=== PATIENT | female | born 1970 | race Caucasian/White ===

== ENCOUNTER 2018-01-17 00:57 | Emergency (ER) | payer SELFPAY ==
[2018-01-17 00:58] VITALS: BP 140/82; PULSE 95; RESP 14; TEMP 37.1; O2SAT 98; BMI 43.6
--- NOTE | 2018-01-17 02:10 | RAD_ITS ---
STUDY: X-RAY - LEFT ANKLE REASON FOR EXAM: Female, 47 years old. WITH LEFT LOWER ANKLE PAIN X 1 MONTH. REPORTS INCREASED EDEMA. ETOH TECHNIQUE: view(s) of the ankle. COMPARISON: None. FINDINGS: Normal visualized distal tibia and fibula. Normal medial and lateral malleoli. Advanced degenerative changes in the tibiotalar articulation and ankle mortise. There is subchondral lucent lesion at the plantar aspect of the talar dome may represent a subchondral cyst or osteochondral lesion. Plantar calcaneal spur and enthesophyte at the insertion of the Achilles tendon are noted. Degenerative changes of the subtalar articulation. Normal talonavicular, calcaneocuboid and tarsal articulations are normal. Marked soft tissue swelling is seen at the medial and lateral aspect of the ankle. RAD/Ankle min 3 Views IMPRESSION: Degenerative arthrosis. There is no evidence of fracture. Electronically Signed: Nadege Majano MD at 3:13 EDT Tel , Service support ,
--- NOTE | 2018-01-17 02:55 | ED.DEP ---
ED Disposition - Plan for ED Patient: Chief Complaint: Lower Extremity Injury Instructions: What Is Arthritis in the Foot? Referrals: Calvin Caban MD [STAFF PHYSICIAN] - 1-2 Weeks
--- NOTE | 2018-01-17 03:05 | ED.DCSUM_ITS ---
- ER Visit Summary Date of Service: 01/17/18 Chief Complaint: [Left foot pain and swelling] History of Present Illness: The patient is a 47 F [who presents the emergency department with left foot splint pain and swelling. It has been going on for the last several months however it was more swollen tonight. She does work doing housekeeping and it hurts worse when she dorsiflexes her foot right at the ankle it feels like someone's sending a knife through it. She states her whole leg seems to be more swollen. She does have varicose veins. Sometimes her toes turn red. Sometimes she has a varicose vein on her foot that burst and is painful and then comes back. 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 She had no fevers or chills. No direct injury. She does drink alcohol. He denies any shortness of breath. Physical Examination: [] She has varicosities in the bilateral lower extremities left greater than right. There are no palpable cords. She has 2+ strong DP pulses. She has no pain with range of motion. She has nonpitting edema about the left ankle diffusely. There is no discoloration of the pin of the foot or ankle. Test Results: [] Emergency Department Course and Treatment: [I do think she requires ultrasound which is not available at this time. This is been going on for several months. History is most consistent with a tendinitis versus arthritic flare. I do not think prophylactic Lovenox is indicated. She was written a prescription for ultrasound in the morning. She understands the importance of maintaining this. X-rays do show arthritic changes about the ankle joint. She was given an Klever wrap and Aircast she will ice and elevate and rest as able.] Treatment Plan: [] Disposition: [Discharge] Impression: [1. Left ankle pain and swelling] This note was generated with [employer] dictation software. It may contain incorrect words, spelling, and punctuation that were not noted in review of the chart prior to signing ED Disposition - Plan for ED Patient: Chief Complaint: Lower Extremity Injury Instructions: What Is Arthritis in the Foot? Referrals: Calvin Caban MD [STAFF PHYSICIAN] - 1-2 Weeks
[2018-01-17 03:09] VITALS: RESP 16
== END 2018-01-17 03:10 | disposition home or self-care (01) ==
PROVIDERS: Emergency Provider Emergency Medicine
DX: M25.572 Pain in left ankle and joints of left foot (principal); M25.472 Effusion, left ankle
CPT/HCPCS: 73610; 99283

== ENCOUNTER → 2018-01-19 15:23 | Outpatient (CLI) | payer SELFPAY ==
--- NOTE | 2018-01-19 15:27 | VDLE_ITS ---
Reason For Study: LEG PAIN AND SWELLING RIGHT LEFT CFV is compressible, spontaneous, phasic, GSV is normal. competent and demonstrates normal CFV is compressible, spontaneous, phasic, augmentation. competent, and demonstrates normal Procedure augmentation. Exam performed in department. FV is compressible, spontaneous, phasic, competent and demonstrates normal augmentation. POP V is compressible, spontaneous, phasic, competent and demonstrates normal augmentation. T/P Trunk is compressible. PTV is compressible. LT PerV is compressible. Interpretation Summary Deep veins of the left lower extremity are patent and compressible segmentally. There is no evidence of left lower extremity deep vein thrombosis. Valvular competence appears intact within the proximal deep venous system on the left . The left greater saphenous vein appears patent and compressible segmentally. Ordering Physician: Ely Noel Referring Physician: Ely Noel Performed By: Deepali Jaeger RVT
== END ==
PROVIDERS: Visit Provider Emergency Medicine
DX: R60.0 Localized edema (principal)
CPT/HCPCS: 93971

== ENCOUNTER 2018-10-15 18:14 | Emergency (ER) | payer SELFPAY ==
[2018-10-15] VITALS (7 sets, daily range): BP systolic 136–167; BP diastolic 85–111; PULSE 70–94; RESP 15–21; TEMP 36.7; O2SAT 96–98; BMI 43.2
--- NOTE | 2018-10-15 18:25 | EKG12_ITS ---
Test Reason : CP Blood Pressure : / mmHG Vent. Rate : 097 BPM Atrial Rate : 087 BPM P-R Int : 110 ms QRS Dur : 086 ms QT Int : 364 ms P-R-T Axes : 043 031 060 degrees QTc Int : 462 ms Sinus rhythm with short ND with frequent Premature ventricular complexes and Fusion complexes Nonspecific ST and T wave abnormality Abnormal ECG Confirmed by GREGORY HEAD, NILO ([id number]), acquisitions editor MIKI GONZAELS ([id number]) on 10/20/2018 3:03:11 PM Referred By: Confirmed By:NILO JENKINS MD
--- NOTE | 2018-10-15 18:26 | ED.VISSUMM ---
- ER Visit Summary Date of Service: 10/15/18 Chief Complaint: chest pain History of Present Illness: The patient is a 47 F who presents for chest pain today, with fluttering in her chest for one week. Patient has had 1 week of intermittent sensation of her chest fluttering. It improves with rest. Today she had a brief 2-second episode of a electric sharp shooting pain in her left chest. She currently is complaining of substernal tightness and fluttering. She has associated shortness of breath and vomited prior to coming into the emergency department. She denies fever, abdominal pain, back pain, urinary symptoms, denies . Patient denies any medical problems. She is a smoker. She has a history of tubal ligation. Physical Examination: Vital signs: afebrile, hemodynamically stable, no hypoxia on room air General: well nourished, well developed, in no distress Skin: warm, dry, no rash, no pallor HEENT: normocephalic and atraumatic; PERRL, EOMI, moist mucous membranes Cardiovascular: regular rate and irregular rhythm without murmurs, no peripheral edema, 2+ pulses all distal extremities Respiratory: No increased work of breathing, lungs are clear to auscultation bilaterally, no rales, rhonchi or wheezing Abdominal: Abdomen is soft, nontender with normoactive bowel sounds, no guarding or rebound, no masses MSK: Moves all extremities, no deformities, normal strength Neuro: Awake and alert, oriented ?4. No facial droop, sensation and motor function intact and symmetric Test Results: Abnormal Lab Results 10/15/18 10/15/18 18:30 18:30 WBC 10.5 RBC 4.61 Hgb 13.0 Hct 39.7 MCV 86.1 MCH 28.2 MCHC 32.7 RDW 13.6 RDW Differential 42.2 Plt Count 328 MPV 9.7 Immature Gran % (Auto) 0.400 Neut % (Auto) 57.9 Lymph % (Auto) 32.1 [place] % (Auto) 6.0 Eos % (Auto) 3.2 Baso % (Auto) 0.4 Absolute Neuts (auto) 6.1 Absolute Lymphs (auto) 3.38 Total Counted Not Reportable Sodium 140 Potassium 3.6 Chloride 107 Carbon Dioxide 25.0 Anion Gap 8 BUN 14 Creatinine 0.63 Estim Creat Clear Calc 104.45 Est GFR (MDRD) Af Amer 130 Est GFR (MDRD) Non-Af 108 BUN/Creatinine Ratio 22.2 H Glucose 109 H Calcium 8.9 Magnesium 1.7 Total Bilirubin 0.30 AST 21 ALT 28 Alkaline Phosphatase 84 Troponin I < 0.015 Total Protein 7.7 Albumin 3.7 Globulin 4.0 Albumin/Globulin Ratio 0.9 TSH 1.74 Clinical Impression(s) from Imaging Studies Chest X-Ray 10/15/18 19:04 IMPRESSION: Normal x-ray examination of the chest. Electronically Signed: Sylvester Arias MD at 20:17 EST , Service support , Medications Given Discontinued Medications Aspirin (Aspirin, Baby) 324 mg PO X1 STA Stop: 10/15/18 18:26 Last Admin: 10/15/18 18:56 Dose: 324 mg Sodium Chloride () 1,000 mls @ 1,000 mls/hr IV .Q1H ONE Stop: 10/15/18 19:24 Last Admin: 10/15/18 18:56 Dose: 1,000 mls/hr Nitroglycerin (Nitrostat) 0.4 mg SUBLINGUAL Q5M DARREN Stop: 10/15/18 18:41 Last Admin: 10/15/18 19:01 Dose: Not Given Admin: 10/15/18 19:01 Dose: Not Given Admin: 10/15/18 18:58 Dose: 0.4 mg Emergency Department Course and Treatment: Patient was placed on the phototypesetting equipment monitor and has frequent unifocal PVCs that correspond to the fluttering feeling. Patient however is complaining of chest tightness as well, which she does not clearly relate solely to the fluttering sensation. She has CAD risk factors of tobacco use and obesity. Chest pain workup was performed. EKG showed a sinus rhythm with no ischemic changes, positive for unifocal PVCs. Troponin negative. Patient's thyroid function was within normal limits. No significant electrolyte derangements. Chest x-ray showed no acute process. Patient did receive aspirin and 1 nitroglycerin when she first presented. Patient on reevaluation stated that she was feeling much better and had a long period where she did not feel any of the fluttering sensations. She is now having a few flutterings, and it is noted that she is not having as frequent PVCs but still has occasional ones noted. The number of PVCs does seem to correlate with patient's chest discomfort. Patient has a HEART score of 3, puts her at low risk of 30-day MACE. Discussed a 3-hour repeat troponin and EKG with the patient, and she stated she did not want to stay. She feels comfortable with the workup that has been done. Patient was given return precautions. Patient discharged home in improved condition. Treatment Plan: [] Disposition: [] Impression: Frequent PVCs This note was generated with [employer] dictation software. It may contain incorrect words, spelling, and punctuation that were not noted in review of the chart prior to signing ED Disposition - Plan for ED Patient: Chief Complaint: Chest Pain Referrals: Care Physician,No Primary [Primary Care Provider] -
[2018-10-15 18:44] LABS: Absolute Lymphocyte Count 3.38 X10^3/ul (0.83-4.51); Absolute Neutrophil Count 6.1 X10^3/uL (2.0-7.7); Basophil# 0.04 X10^3/uL; Basophil% 0.4 % (0-1); Eosinophil# 0.34 X10^3/uL; Eosinophils% 3.2 % (0-5); Hematocrit 39.7 % (37-47); Lymphocyte # 3.38 X10^3/ul (4.0); Lymphocyte % 32.1 % (19-41); Mean Corp Hgb Conc 32.7 g/gl (32-36); Mean Corpuscular Hgb 28.2 pg (27.0-32.0); Mean Corpuscular Volume 86.1 fL (81-99); Mean Platelet Vol. 9.7 fl (6.2-12.0); Monocyte# 0.63 X10^3/uL; Neutrophil # 6.09 X10^3/uL (2.7-7.7); Neutrophil % 57.9 % (47-70); POSITIVE COUNT NO; POSITIVE DIFFERENTIAL NO; POSITIVE MORPHOLOGY NO; Platelet Count 328 K/mm3 (150-450); RBC Distribution Width CV 13.6 % (11.6-14.6); RBC Distribution Width SD 42.2 fl (35.1-43.9); Red Blood Count 4.61 M/mm3 (4.2-5.4); White Blood Count 10.5 K/mm3 (4.4-11.0)
[2018-10-15] MEDS: 0.9% Normal Saline 1,000 ML 1000 ML IV (18:56)
[2018-10-15] MEDS: Aspirin 81 MG TAB.CHEW 324 MG PO (18:56)
[2018-10-15 19:03] LABS: ALB/GLOB Ratio 0.9 RATIO (0.9-2.4); AST(SGOT) 21 U/L (15-37); Alanine Aminotransfer ALT/SGPT 28 U/L (13-56); Albumin, Serum 3.7 g/dL (3.2-5.0); Alkaline Phosphatase 84 U/L (45-117); Anion Gap 8 (5-15); BUN 14 mg/dL (7-18); BUN/Creat Ratio 22.2 RATIO (10-20); Calcium,Total 8.9 mg/dL (8.5-10.1); Chloride 107 mmol/L (98-107); Creatinine, Serum 0.63 mg/dL (0.55-1.02); EST Glomerular Filtration Rate 108 mL/min (>60); Est Glom Filt Rate - Afr Amer 130 mL/min (>60); Estimated Creatinine Clearance 104.45 ml/min; Glucose 109 mg/dL (74-106); Magnesium 1.7 mg/dL (1.6-2.6); Potassium 3.6 mmol/L (3.5-5.1); Protein, Total 7.7 g/dL (6.4-8.2); Sodium Level 140 mmol/L (136-145); Thyroid Stim Hormone (TSH) 1.74 uIU/mL (0.358-3.74)
--- NOTE | 2018-10-15 19:04 | RAD_ITS ---
STUDY: X-RAY CHEST REASON FOR EXAM: Female, 47 years old. Chest pain. Recent upper respiratory infection. TECHNIQUE: PA and lateral views of the chest. COMPARISON: July 29, 2017 FINDINGS: There are monitoring devices. The lungs are clear and expanded. There is no demonstrated pleural abnormality. Normal size heart. Normal mediastinum and karla. Normal visualized pulmonary arteries. Normal visualized aortic arch and descending thoracic aorta. Normal visualized thoracic spine. Normal visualized ribs, clavicles, and shoulders. There is no demonstrated abnormality of the visualized soft tissue structures of the upper abdomen. RAD/Chest PA and Lateral IMPRESSION: Normal x-ray examination of the chest. Electronically Signed: Sylvester Arias MD at 20:17 EST , Service support ,
--- NOTE | 2018-10-15 20:33 | ED.DEP ---
ED Disposition - Plan for ED Patient: Disposition: Home or Assisted Living Chief Complaint: Chest Pain Instructions: Premature Ventricular Contractions, ED Chest Pain Atypical Unkn Cause Referrals: Care Physician,No Primary [Primary Care Provider] - Lisseth Pink DO [STAFF PHYSICIAN] - 1-2 Days if not improving Additional Instructions: You are having occasional funny heart beats, which are most likely harmless. They can be caused by stress, fatigue, stimulant use such as tobacco, caffeine or energy drinks, or sometimes it is unknown what is causing them. If you develop significant chest discomfort again, please return emergency department for another evaluation. If you have any worsening of your condition or any new concerning symptoms, please return immediately to the emergency department for another evaluation.
== END 2018-10-15 20:41 | disposition home or self-care (01) ==
PROVIDERS: Emergency Provider Emergency Medicine
DX: I49.3 Ventricular premature depolarization (principal); E66.9 Obesity, unspecified; F17.200 Nicotine dependence, unspecified, uncomplicated
CPT/HCPCS: 71046; 80053; 83735; 84443; 84484; 85025; 93005; 96360; 99285; J7030; A4216

== ENCOUNTER 2019-08-28 17:24 | Emergency (ER) | payer SELFPAY ==
[2018-10-15 18:15] VITALS: BMI 43.2
[2019-08-28 17:26] VITALS: BP 170/97; PULSE 92; RESP 20; TEMP 36.6; O2SAT 100; BMI 44.2
--- NOTE | 2019-08-28 17:33 | EKG12_ITS ---
Test Reason : PALPS Blood Pressure : / mmHG Vent. Rate : 085 BPM Atrial Rate : 085 BPM P-R Int : 142 ms QRS Dur : 082 ms QT Int : 366 ms P-R-T Axes : 054 045 068 degrees QTc Int : 435 ms Poor data quality, interpretation may be adversely affected Normal sinus rhythm Nonspecific ST abnormality Abnormal ECG Confirmed by OSEAS HEAD, ESSIE ([id number]), department editor MIKI GONZALES ([id number]) on 08/29/2019 12:06:34 PM Referred By: ANTONINA Confirmed By:DEVYN FAROOQ MD
[2019-08-28 17:39] VITALS: BP 170/95; PULSE 74; RESP 25; O2SAT 100
[2019-08-28 17:40] VITALS: O2SAT 100
--- NOTE | 2019-08-28 17:42 | RAD_ITS ---
STUDY: X-RAY CHEST REASON FOR EXAM: Female, 48 years old. Palpitations. TECHNIQUE: Single AP portable view of the chest. COMPARISON: October 15, 2018. FINDINGS: Telemetry wires overlie the chest. The lungs are clear and expanded. There is no demonstrated pleural abnormality. Normal size heart. Normal mediastinum and karla. Normal visualized pulmonary arteries. Normal visualized aortic arch and descending thoracic aorta. Normal visualized thoracic spine. Normal visualized ribs, clavicles, and shoulders. There is no demonstrated abnormality of the visualized soft tissue structures of the upper abdomen. RAD/Chest 1 View (Portable) IMPRESSION: No acute cardiopulmonary disease or interval change. Electronically Signed: Vega Fair DO at 20:32 EST Tel [phone], Service support ,
--- NOTE | 2019-08-28 17:46 | ED.VISSUMM ---
- ER Visit Summary Date of Service: 08/28/19 Chief Complaint: Chest pain and PVC's History of Present Illness: The patient is a 48 F history of PVCs and irritable bowel. Patient states she has had intermittent chest pain for last 2 days. Prior sternal area. She denies shortness of breath. No history of DVT or PE. No recent travel or surgery no mobilization. States the pain is sharp and intermittent. She recent was treated by an urgent care for bronchitis and was placed on Augmentin, prednisone and Tessalon Perles. She denies any calf pain or new swelling. Physical Examination: Middle-aged female no acute distress vital signs stable afebrile. Pulse ox on percent room air no signs hypoxia. HEENT exam unremarkable. Neck nontender no lymphadenopathy. Lungs clear to auscultation bilaterally. Heart regular rhythm no murmur. Abdomen soft nontender normal bowel sounds no peritoneal signs. Chest were nontender. Patient moving all 4 extremities. Calves are nontender without cords. She has trace edema bilaterally which is chronic. Neurologically she is awake and alert with no focal motor deficits. Test Results: EKG shows sinus rhythm rate of 85 with no acute signs of KS or ischemia. There is areas of artifact. Chest x-ray one view shows no acute abnormality. Normal cardiac silhouette mediastinum. Read by myself. Awaiting radiology interpretation. CBC shows white count of 14. Hemoglobin 13. Hematocrit 42. Chemistries normal. Normal creatinine gap. Troponin normal. Emergency Department Course and Treatment: Patient undergo cardiac work-up. Treatment Plan: Repeat exam at 2005 p.m. patient is doing well. She feels comfortable being discharged home. We went over all of her test results. She will follow-up with her primary care physician. Disposition: Discharge Impression: Atypical nonexertional chest pain of uncertain etiology Palpitations This note was generated with [employer] dictation software. It may contain incorrect words, spelling, and punctuation that were not noted in review of the chart prior to signing ED Disposition - Plan for ED Patient: Referrals: Ede King DO [Primary Care Provider] -
[2019-08-28 18:13] LABS: BUN 11 mg/dL (7-18); Creatinine, Serum 0.85 mg/dL (0.55-1.02); Glucose 90 mg/dL (74-106)
[2019-08-28 18:14] LABS: Anion Gap 5 (5-15); BUN/Creat Ratio 12.9 RATIO (10-20); Calcium,Total 9.4 mg/dL (8.5-10.1); Chloride 105 mmol/L (98-107); EST Glomerular Filtration Rate 76 mL/min (>60); Est Glom Filt Rate - Afr Amer 92 mL/min (>60); Estimated Creatinine Clearance 73.62 ml/min; Potassium 4.4 mmol/L (3.5-5.1); Sodium Level 138 mmol/L (136-145)
[2019-08-28 18:21] LABS: Absolute Lymphocyte Count 3.74 X10^3/uL (0.83-4.51); Absolute Neutrophil Count 9.2 X10^3/uL (2.0-7.7); Basophil# 0.06 X10^3/uL; Basophil% 0.4 % (0-1); Eosinophil# 0.34 X10^3/uL; Eosinophils% 2.4 % (0-5); Hemoglobin 13.7 g/dL (12.0-15.0); Lymphocyte # 3.74 X10^3/ul (4.0); Lymphocyte % 26.7 % (19-41); Mean Corp Hgb Conc 32.6 g/dL (32-36); Mean Corpuscular Hgb 28.5 pg (27.0-32.0); Mean Corpuscular Volume 87.3 fL (81-99); Mean Platelet Vol. 10.3 fl (6.2-12.0); Monocyte# 0.61 X10^3/uL; Monocyte% 4.4 % (0-10); NRBC Flagged by Analyzer 0 % (0-5); Neutrophil # 9.19 X10^3/uL (2.7-7.7); Neutrophil % 65.7 % (47-70); Platelet Count 360 K/mm3 (150-450); RBC Distribution Width CV 13.6 % (11.6-14.6); RBC Distribution Width SD 42.7 fl (35.1-43.9); Red Blood Count 4.81 M/mm3 (4.2-5.4)
[2019-08-28 18:27] VITALS: BP 135/81; PULSE 77; RESP 19; O2SAT 98
--- NOTE | 2019-08-28 20:10 | ED.DEP ---
ED Disposition - Plan for ED Patient: Disposition: Home or Assisted Living Instructions: Palpitations Referrals: Ede King DO [Primary Care Provider] - 3-5 Days Additional Instructions: Return if feeling worse. Otherwise follow-up with your primary care physician.
[2019-08-28 20:12] VITALS: BP 146/78; PULSE 81; RESP 18; O2SAT 99
--- NOTE | 2019-08-28 20:17 | ED.RN ---
THIS NURSE REVIEWED D/C INSTRUCTIONS WITH PT. PT VERBALIZED UNDERSTANDING OF INSTRUCTIONS. IV D/C. IV CATHETER INTACT. PT TOLERATED WELL. PT DENIES FURTHER NEEDS OR QUESTIONS AT THIS TIME. PT AMBULATES FROM ROOM ON OWN WITHOUT ASSISTANCE FROM STAFF
== END 2019-08-28 20:18 | disposition home or self-care (01) ==
PROVIDERS: Emergency Provider Emergency Medicine; Family Provider Family Medicine; PCP Family Medicine
DX: R07.89 Other chest pain (principal); R00.2 Palpitations; F17.200 Nicotine dependence, unspecified, uncomplicated
CPT/HCPCS: 71045; 80048; 84484; 85025; 93005; 99284; A4216

== ENCOUNTER 2020-01-26 13:59 | Emergency (ER) | payer MEDICAID, SELFPAY ==
[2020-01-26 14:00] VITALS: BP 189/107; PULSE 87; RESP 16; TEMP 36.6; O2SAT 99; BMI 46.7
--- NOTE | 2020-01-26 14:13 | ED.VIS.GEN ---
History of Present Illness Chief Complaint: Hypertension Informant: Patient Narrative: Patient presents the emergency department for the evaluation of hypertension. Patient states she was at her bariatric surgeon's office today and they noted significantly elevated blood pressures upwards of 190/100. The patient states that on various emergency department visits she has had is been noted that her blood pressure has been significantly elevated like that. She has been unable to establish a new PCP because of the current pandemic restrictions. She states that she did call her new PCPs office and they recommended her come to the emergency room. She has had a headache for the past 3 days but denies any neurologic symptoms. She states that earlier today she felt some tinnitus. She denies any chest pain shortness of breath. She reports having had normal renal function test in the past I did confirm this her last creatinine was in August and normal. She has never been treated for hypertension. Past Medical History - Allergies and Home Meds Allergies/Adverse Reactions: Allergies latex Allergy (Verified 01/26/20 13:59) Rash Primary Care Physician: Ricardo Boob MD [Primary Care Provider] - Smoking Status: Current every day smoker Review of Systems General: Denies: Chills, Fever, Sweats Eyes: Denies: Visual changes - bilaterally, Diplopia ENT: Reports: - - Tinnitus. Denies: Rhinorrhea, Sore throat Cardiovascular: Denies: Chest pain, Palpitations Respiratory: Denies: Dyspnea, Cough, Dyspnea on exertion Gastrointestinal: Denies: Abdominal pain, Nausea, Vomiting, Diarrhea, Melena, Hematochezia Genitourinary: Denies: Dysuria, Hematuria, Frequency Musculoskeletal: Denies: Back pain, Extremity Pain Skin: Denies: Rash, Wounds Neurological: Reports: Headache. Denies: Weakness, Numbness Physical Exam Vital Signs/Narrative: Vital Signs Temp Pulse Resp BP Pulse Ox 01/26/20 14:00 97.9 F 87 16 189/107 H 99 Inital Vital Signs reviewed: Yes General: Well nourished, Well developed, Obese, No Acute Distress Head: Normocephalic, Atraumatic Eyes: Perrl, EOMI ENT: Moist mucous membranes, No rhinorrhea Neck: Supple, Nontender Cardiovascular: Regular rate, Regular rhythm, No murmurs Respiratory: No distress, CTA bilaterally, Chest nontender Abdomen: Soft, Nontender, Nondistended, Normal bowel sounds Back: Nontender, Normal Inspection Extremities: Nontender, No edema Skin: Normal color, No rash Neurological: Alert, Oriented x3, Cranial nerves II-XII grossly intact, Normal Strength, Normal Sensation Psychological: Normal affect, Normal Mood Diagnostic/Tx/Re-eval - Medical Decision Making I will start the patient on amlodipine 5 mg. We talked about her getting a blood pressure cuff and recording numerous data points to review with her doctor. This could potentially be reviewed during a telemedicine conference. Patient understands that the treatment of blood pressure is unique to each individual and will require adjustments over time. ED Disposition - Plan for ED Patient: Disposition: Home or Assisted Living Instructions: ED Hypertension New Begin Treatment Prescriptions: Amlodipine Besylate [Norvasc] 5 mg PO DAILY #30 tab Transmission Status: Pending to [email or web address] #30 Referrals: Ricardo Bobo MD [Primary Care Provider] - (with in 2 weeks to discuss your blood pressure readings.) Additional Instructions: I strongly recommend obtaining a blood pressure cuff and recording your blood pressure daily using the same arm and in a normal seated position.
[2020-01-26 14:36] VITALS: BP 189/107
== END 2020-01-26 14:43 | disposition home or self-care (01) ==
LOC: ED 14:37
PROVIDERS: Emergency Provider Emergency Medicine; PCP Family Medicine
DX: I10 Essential (primary) hypertension (principal); E66.9 Obesity, unspecified; Z68.42 Body mass index [BMI] 45.0-49.9, adult; F17.200 Nicotine dependence, unspecified, uncomplicated
CPT/HCPCS: 99282

== ENCOUNTER 2020-03-24 05:15 | Emergency (ER) | payer MEDICAID, SELFPAY ==
[2020-03-24 05:16] VITALS: BP 158/90; PULSE 107; RESP 18; TEMP 36.7; O2SAT 97; BMI 44.1
--- NOTE | 2020-03-24 05:26 | ED.VIS.GEN ---
History of Present Illness Chief Complaint: Suicidal Informant: Patient Narrative: Patient brought in by police at the request of crisis. She spoke with crisis tonight. She was in the bathtub and wanted to cut her wrist to kill herself. She was upset and drank alcohol this evening. She had a friend who committed suicide and she is deeply saddened by this. Current severity is severe. Denies illegal drug use Past Medical History - Allergies and Home Meds Allergies/Adverse Reactions: Allergies latex Allergy (Verified 03/24/20 05:19) Rash Prior records reviewed: Yes Past Medical History: - - Reviewed Surgical History: - - Reviewed Smoking Status: Light Smoker (<10/day) Alcohol: Occasional Drugs: None Review of Systems General: Denies: Chills, Fever, Sweats Eyes: Denies: Visual changes - bilaterally, Diplopia ENT: Denies: Rhinorrhea, Sore throat Cardiovascular: Denies: Chest pain, Palpitations Respiratory: Denies: Dyspnea, Cough, Dyspnea on exertion Gastrointestinal: Denies: Abdominal pain, Nausea, Vomiting, Diarrhea, Melena, Hematochezia Genitourinary: Denies: Dysuria, Hematuria, Frequency Musculoskeletal: Denies: Back pain, Extremity Pain Skin: Denies: Rash, Wounds Neurological: Denies: Headache, Weakness, Numbness Psych: Reports: Depression, Suicidal ideations Physical Exam Vital Signs/Narrative: Vital Signs Temp Pulse Resp BP Pulse Ox 03/24/20 05:16 98.0 F 107 H 18 158/90 H 97 General: Well nourished, Well developed, No Acute Distress Head: Normocephalic, Atraumatic Eyes: Perrl, EOMI ENT: Moist mucous membranes, No rhinorrhea Neck: Supple, Nontender Cardiovascular: Regular rate, Regular rhythm, No murmurs Respiratory: No distress, CTA bilaterally, Chest nontender Abdomen: Soft, Nontender, Nondistended, Normal bowel sounds Back: Nontender, Normal Inspection Extremities: Nontender, No edema Skin: Normal color, No rash Neurological: Alert, Oriented x3, Cranial nerves II-XII grossly intact, Normal Strength, Normal Sensation Psychological: Tearful Diagnostic/Tx/Re-eval - Medical Decision Making Patient will undergo medical screening labs and clearance. Will be seen by crisis for suicidal ideation with plan to hurt self. Alcohol is 260. Potassium is 3.2. Potassium was replaced orally. Will discuss the case with crisis and they will see her upon sobriety for disposition ED Disposition - Plan for ED Patient: Disposition: Home or Assisted Living Diagnosis: Suicidal ideation, Alcohol intoxication
[2020-03-24 05:40] LABS: Absolute Lymphocyte Count 5.31 X10^3/uL (0.83-4.51); Absolute Neutrophil Count 4.2 X10^3/uL (2.0-7.7); Basophil# 0.06 X10^3/uL; Basophil% 0.6 % (0-1); Eosinophil# 0.33 X10^3/uL; Eosinophils% 3.1 % (0-5); Hematocrit 38.6 % (37-47); Hemoglobin 12.7 g/dL (12.0-15.0); Lymphocyte # 5.31 X10^3/ul (4.0); Lymphocyte % 50.7 % (19-41); Mean Corp Hgb Conc 32.9 g/dL (32-36); Mean Corpuscular Hgb 28.5 pg (27.0-32.0); Mean Corpuscular Volume 86.5 fL (81-99); Mean Platelet Vol. 9.5 fl (6.2-12.0); Monocyte# 0.56 X10^3/uL; Monocyte% 5.3 % (0-10); NRBC Flagged by Analyzer 0 % (0-5); Neutrophil # 4.17 X10^3/uL (2.7-7.7); Neutrophil % 39.8 % (47-70); POSITIVE DIFFERENTIAL YES; Platelet Count 377 K/mm3 (150-450); RBC Distribution Width SD 40.5 fl (35.1-43.9); Red Blood Count 4.46 M/mm3 (4.2-5.4); White Blood Count 10.5 K/mm3 (4.4-11.0)
[2020-03-24 05:40] LABS: Vista UDS pH Range 6
[2020-03-24 05:41] LABS: Differential Indicated SCAN CRITERIA MET
[2020-03-24 05:51] LABS: Internal QC Validated? YES +Cl - CLEAR BKGD
[2020-03-24 05:52] LABS: Pregnancy, Serum, hCG Quali. NEGATIVE Negative
[2020-03-24 05:52] LABS: Amphetamine Urine VISTA NEGATIVE (<1000 ng/mL); Barbiturate Urine VISTA NEGATIVE (< 200 ng/mL); Benzodiazepine Urine VISTA NEGATIVE (< 200 ng/mL); Cocaine Urine VISTA NEGATIVE (< 300 ng/mL); Ecstacy Urine VISTA NEGATIVE (< 500 ng/mL); Methadone Urine VISTA NEGATIVE (< 300 ng/mL); PCP Urine VISTA NEGATIVE (< 25 ng/mL); THC Urine VISTA NEGATIVE (< 50 ng/mL)
[2020-03-24 05:56] LABS: Anion Gap 9 (5-15); BUN 11 mg/dL (7-18); Calcium,Total 8.6 mg/dL (8.5-10.1); Chloride 102 mmol/L (98-107); EST Glomerular Filtration Rate 139 mL/min (>60); Est Glom Filt Rate - Afr Amer 169 mL/min (>60); Estimated Creatinine Clearance 118.82 ml/min; Glucose 104 mg/dL (74-106); Potassium 3.2 mmol/L (3.5-5.1); Sodium Level 135 mmol/L (136-145)
[2020-03-24 06:06] LABS: Atypical Lymphocyte RARE %; Differential Comment SCANNED
[2020-03-24 06:15] VITALS: RESP 15
[2020-03-24 11:54] VITALS: BP 134/82; PULSE 69; RESP 15; TEMP 36.7; O2SAT 98
--- NOTE | 2020-03-24 13:12 | CM.ED ---
SOCIAL WORK Received call from Soumya with Crisis. Updated on patient's alcohol level. Per Soumya, has other patient's ahead of patient. Will call back in to complete assessment.
--- NOTE | 2020-03-24 13:54 | NURSING ---
CALLED CRISIS TO TALK TO PATIENT AND DO AN ASSESSEMENT
[2020-03-24 13:59] VITALS: RESP 17
--- NOTE | 2020-03-24 15:17 | ED.DCSUM_ITS ---
- ER Visit Summary Date of Service: 03/24/20 Signed out to me by Dr. Michael Hernandez read pending lesion by crisis. Patient was intoxicated upon arrival and stating that she wanted to hurt herself. On repeat her alcohol has come back negative. Patient is no longer expressing ideas of suicidal ideation. Crisis contacted me and they will make a safety plan for her. She will follow-up with crisis. Patient also expresses no suicidal ideation to me at this time will be discharged home in stable condition. This note was generated with [employer] dictation software. It may contain incorrect words, spelling, and punctuation that were not noted in review of the chart prior to signing ED Disposition - Plan for ED Patient: Disposition: Home or Assisted Living Diagnosis: Suicidal ideation, Alcohol intoxication Referrals: Ricardo Bobo MD [Primary Care Provider] -
[2020-03-24 15:28] VITALS: PULSE 72; RESP 17; O2SAT 98
== END 2020-03-24 15:30 | disposition home or self-care (01) ==
PROVIDERS: Emergency Medicine; Emergency Provider Emergency Medicine; PCP Family Medicine
DX: R45.851 Suicidal ideations (principal); F10.129 Alcohol abuse with intoxication, unspecified; Y90.8 Blood alcohol level of 240 mg/100 ml or more; F17.200 Nicotine dependence, unspecified, uncomplicated
CPT/HCPCS: 80048; 80307; 80320; 84703; 85025; 99284; G0480

== ENCOUNTER → 2020-04-28 18:04 | Outpatient (CLI) | payer MEDICAID, SELFPAY | PROVIDERS: PCP Family Medicine; Referring Provider Family Medicine; Visit Provider Family Medicine | DX: Z20.828 Contact with and (suspected) exposure to other viral communicable diseases (principal) | CPT/HCPCS: 87635; 94799; U0003 ==

== ENCOUNTER 2022-02-25 10:18 | Emergency (ER) | payer MEDICAID, SELFPAY ==
[2022-02-25 10:19] VITALS: BP 151/79; PULSE 73; RESP 18; TEMP 36.2; O2SAT 100; BMI 22.4
--- NOTE | 2022-02-25 11:17 | ED.VIS.LOWEX ---
HPI History of Present Illness Chief Complaint: Lower Extremity Injury Informant: patient Onset/Context/Timing Onset: Weeks (1) Context: Gradual Onset Timing: Continuous Quality of Pain: Aching Location: Left knee Current Severity: Severe Maximum Severity: Severe Worsened by: Moving, weightbearing Relieved by: Nothing Associated Symptoms Associated Symptoms: Negative for Parasthesia and Weakness Narrative Narrative: Patient has history of of osteoarthritis of her left knee, she has had significant worsening in the past week, she states she works 55 hours/week and is on her feet the whole time, she tried to get into see her doctor at [facility], Dr. Fregoso in order to get an injection in it, the last time she had this was 07/2020 but they are too busy and cannot get her in for several weeks, so she was referred to the ER to get an injection in her knee. She states last time this happened it was Celestone. She states it is locking up on her, she does not have any redness, rash, fevers or chills. She states this is the exact same thing that has happened the last time steroids injected into her knee fixed it temporarily. [facility] Medical History (Updated 02/25/22 @ 14:[address] Sylvester Guerrero MD) Osteoarthritis Home Medications hydrochlorothiazide 25 mg PO DAILY 03/24/20 [History Last Taken Unknown] lisinopril 20 mg PO DAILY 03/24/20 [History Last Taken Unknown] Allergy/AdvReac Type Severity Reaction Status Date / Time latex Allergy Rash Verified 02/25/22 10:19 Surgical History (Updated 02/25/22 @ 14:[address] Sylvester Guerrero MD) Gastric bypass status for obesity Social History Smoking Status: Light Smoker (<10/day) ROS ROS ED Constitutional Constitutional ED: Denies chills or fever(s) Musculoskeletal Musculoskeletal: Reports extremity pain; Denies neck pain Integumentary Denies Abrasions, rash or wounds Neurologic Neurologic: Denies paresthesias or weakness EXAM Physical Exam Const Vital Signs: 02/25/22 10:19 Temperature 97.1 F L Temperature Source Temporal Pulse Rate 73 Respiratory Rate 18 Blood Pressure 151/79 H Blood Pressure Mean 103 Pulse Ox 100 Oxygen Delivery Method Room Air Positive well nourished and well developed General Appearance ED: well developed and NAD Neck full ROM and supple Back/Spine normal ROM and normal to inspection Extremity Extremity Narrative: Mild effusion left knee. No excessive warmth or erythema. Limited range of motion due to pain. All compartments proximal and distal are soft and nondistended, no calf tenderness, neurovascular intact distally, full range of motion of hip and ankle. No effusion in the right knee. Neuro oriented x3, no focal motor deficits and no sensory deficits noted Sensorium / Orientation: alert Psych mental status grossly normal and thought process normal Skin no wounds Rashes: no rashes MDM MDM MDM Narrative Medical decision making narrative: I discussed with Dr. Fregoso, to obtain the correct concoction that he recommends and gave the patient before for her joint injection which I was okay doing only because of the patient's history of having had these in the past and having the same symptoms. Patient was amenable to this, we did discuss the risks of worsening if she actually has a joint injection, as well as the risk of infection from a joint injection. She understood these and was okay with the risk, was okay with the procedure, we discussed signs and symptoms of joint infection reasons to return immediately to the ER and she is comfortable with that overall plan. Procedures Other Procedures Procedure(s): Joint injection left knee: After sterile prep with Betadine, medial approach subpatellar injection with a 21-gauge needle using 6 mg of betamethasone (Celestone), 4 cc plain 1% lidocaine, and 0.5 cc 0.5% bupivacaine was injected after finding the joint space and aspirating a very small amount of joint fluid to confirm placement. Tolerated well by the patient, no complications, dressed with bacitracin and a bandage. Discharge Plan Triage Chief Complaint: Lower Extremity Injury ED Provider: Sylvester Guerrero Dx/Rx/DC Orders Clinical Impression: Osteoarthritis of left knee, Exacerbation of osteoarthritis Instructions: ED Osteoarthritis, Betamethasone Sodium Phosphate Solution for injection Prescriptions: No Action lisinopril 20 MG tablet 20 mg PO DAILY RF: 0 hydrochlorothiazide 25 MG tablet 25 mg PO DAILY RF: 0 Primary Care Provider: Ricardo Bobo Referrals: Ricardo Bobo MD [Primary Care Provider] - Hollis Fregoso DO [STAFF PHYSICIAN] - As Needed (and/or Dr. Hartley) Disposition Disposition: Home, Self Care
[2022-02-25] MEDS: Bupivacaine Mpf 0.5% 30 ML VIAL INFILT (15:15)
[2022-02-25] MEDS: Lidocaine 1% (20 ml mdv) 20 ML Vial 4 ML INFILT (15:15)
[2022-02-25] MEDS: Betamethasone/Betamethasone 30 MG/5 ML Vial 6 MG INTRAARTIC (15:15)
[2022-02-25 15:44] VITALS: BP 118/65; PULSE 75; RESP 16; O2SAT 98
== END 2022-02-25 15:25 | disposition home or self-care (01) ==
PROVIDERS: Emergency Provider Emergency Medicine; PCP Family Medicine; Visit Provider Emergency Medicine
DX: M17.12 Unilateral primary osteoarthritis, left knee (principal); F17.200 Nicotine dependence, unspecified, uncomplicated
CPT/HCPCS: 20610; 99282; J0702

== ENCOUNTER 2023-12-17 16:33 | Emergency (ER) | payer SELFPAY ==
[2023-12-17 16:34] VITALS: BP 146/80; PULSE 68; RESP 14; TEMP 36.5; O2SAT 100; BMI 25.0
--- NOTE | 2023-12-17 16:55 | ED.RN ---
pt brought back to ED room 12. pt waited a max of 10 minutes and stormed out stating i am not waiting for this.
--- NOTE | 2023-12-17 17:01 | ED.VIS.LOWEX ---
HPI History of Present Illness HPI Narrative: Patient left prior to being seen. Including triage she had only been here a total of 23 minutes. She was the next patient to be seen a little he was getting ready to walk back to the room to see her and the nurses tell me she left. Chief Complaint: Lower Extremity Injury [facility] Medical History (Updated 12/17/23 @ 17:[address] Bennett Meneses MD) Osteoarthritis Home Medications hydrochlorothiazide 25 mg tablet 25 mg PO DAILY 03/24/20 [History Last Taken Unknown] lisinopril 20 mg tablet 20 mg PO DAILY 03/24/20 [History Last Taken Unknown] Allergy/AdvReac Type Severity Reaction Status Date / Time latex Allergy Rash Verified 12/17/23 16:37 Surgical History (Updated 02/25/22 @ 14:[address] Sylvester Guerrero MD) Gastric bypass status for obesity Social History Smoking Status: Light Smoker (<10/day) EXAM Physical Exam Const Vital Signs: 12/17/23 16:34 Temperature 97.7 F L Temperature Source Temporal Pulse Rate 68 Respiratory Rate 14 Blood Pressure 146/80 H Blood Pressure Mean 102 Pulse Ox 100 Oxygen Delivery Method Room Air Discharge Plan Triage Chief Complaint: Lower Extremity Injury ED Provider: Provider,Ed Physician Dx/Rx/DC Orders Clinical Impression: Patient left without being seen Prescriptions: No Action lisinopril 20 MG tablet 20 mg PO DAILY hydrochlorothiazide 25 MG tablet 25 mg PO DAILY Primary Care Provider: Ricardo Bobo Disposition Disposition: LEFT WITHOUT BEING SEEN Discharge Date/Time: 12/17/23 17:01
== END 2023-12-17 17:01 | disposition left against medical advice (07) ==
LOC: ED 17:00
PROVIDERS: Emergency Provider Emergency Medicine; PCP Family Medicine; Visit Provider Emergency Medicine
DX: R69 Illness, unspecified (principal); Z53.21 Procedure and treatment not carried out due to patient leaving prior to being seen by health care provider